=== PATIENT | female | born 1975 | race Caucasian/White ===

== ENCOUNTER 2023-03-03 09:31 | Emergency (ER) | payer MEDICAID ==
[~2023-03-03] VITALS: Ht 157.5 cm; Wt 56.7 kg
[2023-03-03 09:36] VITALS: BP_SYST 131; PULSE 98; RESP 18; TEMP 98.3; O2SAT 97
[2023-03-03 10:39] LABS: BASOPHILS # (AUTO) 0.1 K/uL (0.0-0.2); BASOPHILS % (AUTO) 0.6 % (0.0-2.0); EOSINOPHILS # (AUTO) 0.1 K/uL (0.0-0.4); EOSINOPHILS % (AUTO) 1.5 % (0.0-4.0); HEMATOCRIT 42.8 % (36-48); HEMOGLOBIN 13.9 g/dL (12.0-16.0); LYMPHOCYTES # (AUTO) 2.1 K/uL (1.0-5.5); LYMPHOCYTES % (AUTO) 25.5 % (20.5-51.5); MEAN CORPUSCULAR HEMOGLOBIN 30 pg (27-31); MEAN CORPUSCULAR HGB CONC 32 % (32-36); MEAN CORPUSCULAR VOLUME 93 fL (79.0-98.0); MONOCYTES # (AUTO) 0.6 K/uL (0.0-1.0); MONOCYTES % (AUTO) 6.9 % (1.7-9.3); NEUTROPHILS # (AUTO) 5.3 K/uL (1.8-7.7); NEUTROPHILS % (AUTO) 65.5 % (40.0-70.0); PLATELET COUNT (AUTO) 320 K/uL (130-430); RED BLOOD CELL COUNT(AUTO) 4.59 MIL/uL (4.2-6.2); RED CELL DISTRIBUTION WIDTH 13.4 % (9.0-15.0); WHITE BLOOD COUNT (AUTO) 8.1 K/uL (4.8-10.8)
[2023-03-03 10:49] LABS: CALCIUM 9.2 mg/dL (8.4-11.0); CREATININE 0.72 mg/dL (0.55-1.30)
[2023-03-03 10:54] LABS: ALBUMIN 3.6 g/dL (3.4-4.8); TOTAL BILIRUBIN 0.6 mg/dL (0.0-1.0); TOTAL PROTEIN, SERUM 6.5 g/dL (6.4-8.3)
[2023-03-03] MEDS ORDERED: KETOROLAC TROMETHAMINE 15 MG VIAL IM ONE (11:00)
[2023-03-03 11:07] LABS: BILIRUBIN,URINE NEGATIVE (NEGATIVE); BLOOD, URINE 3+ (NEGATIVE); CLARITY/URINE CLOUDY (CLEAR); COLOR,URINE YELLOW (YELLOW); GLUCOSE,URINE NEGATIVE (NEGATIVE); KETONES,URINE NEGATIVE (NEGATIVE); LEUKOCYTE ESTERASE ,URINE TRACE (NEGATIVE); NITRITE, URINE NEGATIVE (NEGATIVE); PROTEIN URINE NEGATIVE (NEGATIVE); UROBILINOGEN,URINE 0.2 (0.2-1.0)
[2023-03-03 11:12] LABS: POTASSIUM 3.7 mmol/L (3.5-5.1)
[2023-03-03 12:09] LABS: BACTERIA,URINE MODERATE /HPF (None Seen)
[2023-03-03] MEDS ORDERED: IBUP-1969 PO (12:33)
[2023-03-03] MEDS ORDERED: CEPH250C PO (12:33)
[2023-03-03 12:52] VITALS: BP_SYST 131; PULSE 98; RESP 18; TEMP 98.3; O2SAT 97
== END 2023-03-03 12:45 | disposition home or self-care (01) ==
LOC: SED 09:31
DX: N39.0 Urinary tract infection, site not specified (principal); N93.9 Abnormal uterine and vaginal bleeding, unspecified; N83.209 Unspecified ovarian cyst, unspecified side; Z79.899 Other long term (current) drug therapy
CPT/HCPCS: 99285; 76856; 80053; 81001; 85025; 86886; 86900; 86901; 87086; 36415; 81025; 96372; 87491; 81000; 81015; J1885